=== PATIENT | female | born 1960 | race African-American/Black ===

== ENCOUNTER 2021-10-02 15:32 | Emergency (ER) | payer SELFPAY ==
[~2021-10-02] VITALS: Ht 167.6 cm; Wt 73.0 kg
[2021-10-02] MEDS ORDERED: MAGN400C PO (16:21)
[2021-10-02] MEDS ORDERED: HYDR-4001 MT (19:21)
[2021-10-02] MEDS ORDERED: HYDROCODONE/ACETAMINOPHEN 5/325MG TABLET PO ONE (19:30)
[2021-10-02 20:53] VITALS: BP 145/83
== END 2021-10-02 20:57 | disposition home or self-care (01) ==
LOC: ER 15:32
DX: R25.2 Cramp and spasm (principal); Z98.890 Other specified postprocedural states
CPT/HCPCS: 99283